=== PATIENT | female | born 1975 | race Two or more races ===

== ENCOUNTER 2016-07-05 10:36 | Emergency (ER) | payer OTHER ==
[~2016-07-05] VITALS: Ht 165.1 cm; Wt 72.6 kg
[2016-07-05] MEDS ORDERED: PRILOSEC OTC20 MG ORAL (10:50)
[2016-07-05] MEDS ORDERED: AMLODIPINE BESY10 MG ORAL (10:50)
[2016-07-05] MEDS ORDERED: ASPIR-LOW81 MG ORAL (10:50)
[2016-07-05] MEDS ORDERED: Ketorolac 30mg Inj IV ONE ×2 (11:00→17:15)
[2016-07-05] MEDS ORDERED: Tubing IV Cassette IV ONE (11:04)
[2016-07-05 11:09] LABS: ALANINE AMINOTRANSFERASE 10 U/L (3-33); ALBUMIN/GLOBULIN RATIO 1.2 (1.0-2.7); ANION GAP 20 (5-15); ASPARTATE AMINO TRANSFERASE 15 U/L (5-40); CALCIUM 9.2 mg/dL (8.6-10.2); CARBON DIOXIDE 20 mEQ/L (20-30); CHLORIDE 99 mEQ/L (98-107); CREATININE 0.9 mg/dL (0.5-0.9); GLOMERULAR FILTRATION RATE > 60 mL/min (>60); HEMOLYSIS 3; POTASSIUM 3.7 mEQ/L (3.4-4.9); SODIUM 139 mEQ/L (135-145); TOTAL PROTEIN 7.5 g/dL (6.6-8.7); TROPONIN I < 0.30 ng/mL (<=0.30)
[2016-07-05 11:14] LABS: EOSINOPHILS % (AUTO) 2.5 % (0.0-3.0); LYMPHOCYTES % (AUTO) 21.2 % (20.0-45.0); MEAN CORPUSCULAR HEMOGLOBIN 29.2 PG (27.0-31.0); MEAN CORPUSCULAR HGB CONC 33.4 G/DL (32.0-36.0); MEAN CORPUSCULAR VOLUME 87 FL (80-99); MEAN PLATELET VOLUME 5.5 FL (6.5-10.1); NEUTROPHILS % (AUTO) 69.4 % (45.0-75.0); PLATELET COUNT 436 K/UL (150-450); RED BLOOD COUNT 5.18 M/UL (4.20-5.40); RED CELL DISTRIBUTION WIDTH 11.8 % (11.6-14.8); WHITE BLOOD COUNT 7.9 K/UL (4.8-10.8)
[2016-07-05 11:19] LABS: CKMB < 1.5 ng/mL (< 3.8)
--- NOTE | 2016-07-05 11:39 | Diagnostic Imaging Report ---
Indication: Chest Pain Comparison: None A single view chest radiograph was obtained. Findings: Cardiomediastinal appearance is within normal limits for age. Pulmonary vascularity is appropriate. The diaphragmatic contour is smooth and costophrenic angles are sharp. No pleural effusions are identified. The bones are unremarkable. Impression: No acute findings
[2016-07-05 12:00] VITALS: BP 126/77
[2016-07-05 12:35] LABS: APPEARANCE,URINE CLEAR; KETONES,URINE NEGATIVE (NEGATIVE); LEUKOCYTE ESTERASE ,URINE NEGATIVE (NEGATIVE); NITRITE,URINE NEGATIVE (NEGATIVE); PH,URINE 7 (4.5-8.0); PROTEIN,URINE NEGATIVE (NEGATIVE); UROBILINOGEN,URINE NORMAL MG/DL (0.0-1.0)
[2016-07-05 12:53] LABS: BACTERIA,URINE OCCASIONAL /HPF; SQUAMOUS EPITHELIAL CELL,UR OCCASIONAL /LPF (NONE/OCC); WBC,URINE 0-2 /HPF (0 - 2)
--- NOTE | 2016-07-05 14:20 | Emergency Room Report ---
History of Present Illness General Chief Complaint: Chest Pain Source: Patient (CAROLINE ORTA M.D.) Present Illness HPI 40-year-old female presents ED complaining of chest pain. States chest pain started this morning. Pain is left-sided, 7/10, under the left breast, sharp, worse with moving and twisting. Worse with deep breaths. Denies shortness of breath. Patient denies drug use. No other aggravating or relieving factors. Denies any other associated symptoms (CAROLINE ORTA M.D.) Allergies: Coded Allergies: CIPROFLOXACIN (Verified Allergy, Intermediate, 07/05/16) Patient History Past Medical History: HTN Past Surgical History: none Pertinent Family History: none Social History: Denies: alcohol use, drug use, smoking Now: No Immunizations: UTD Reviewed Nursing Documentation: PMH: Agreed, PSxH: Agreed (CAROLINE ORTA M.D.) Past Medical History: see triage record Pertinent Family History: [place] (Rafael Roberts M.D.) Nursing Documentation-PMH Hx Cardiac Problems: No Hx Hypertension: Yes Hx Pacemaker: No Hx Asthma: No Hx COPD: No Hx Diabetes: No Hx Cancer: No Hx Gastrointestinal Problems: No Hx Dialysis: No History Of Psychiatric Problem: No Hx Neurological Problems: No Hx Cerebrovascular Accident: No Hx Seizures: No (CAROLINE ORTA M.D.) Review of Systems All Other Systems: negative except mentioned in HPI (CAROLINE ORTA M.D.) Physical Exam Vital Signs Date Time Temp Pulse Resp B/P Pulse Ox O2 Delivery O2 Flow Rate FiO2 07/05/16 10:32 98.1 100 16 126/98 98 Room Air Sp02 EP Interpretation: reviewed, normal General Appearance: no apparent distress, alert, GCS 15, non-toxic Head: normocephalic, atraumatic Eyes: bilateral eye PERRL, bilateral eye normal inspection ENT: hearing grossly normal, normal pharynx, no angioedema, normal voice Neck: full range of motion, supple/symm/no masses Respiratory: chest non-tender, lungs clear, normal breath sounds, speaking full sentences Cardiovascular #1: regular rate, rhythm, no edema Cardiovascular #2: 2+ carotid (R), 2+ carotid (L), 2+ radial (R), 2+ radial (L) , 2+ dorsalis pedis (R), 2+ dorsalis pedis (L) Gastrointestinal: normal bowel sounds, non tender, soft, non-distended, no guarding, no rebound Rectal: deferred Genitourinary: normal inspection, no CVA tenderness Musculoskeletal: back normal, gait/station normal, normal range of motion, non- tender Neurologic: alert, oriented x3, responsive, motor strength/tone normal, sensory intact, speech normal Psychiatric: judgement/insight normal, memory normal, mood/affect normal, no suicidal/homicidal ideation Reflexes: 3+ bicep (R), 3+ bicep (L), 3+ tricep (R), 3+ tricep (L), 3+ knee (R) , 3+ knee (L) Skin: normal color, no rash, warm/dry, well hydrated Lymphatic: no adenopathy (CAROLINE ORTA M.D.) Medical Decision Making Diagnostic Impression: Primary Impression: Chest pain Qualified Codes: R07.9 - Chest pain, unspecified Labs Test 07/05/16 10:30 07/05/16 12:17 White Blood Count 7.9 K/UL (4.8-10.8) Red Blood Count 5.18 M/UL (4.20-5.40) Hemoglobin 15.1 G/DL (12.0-16.0) Hematocrit 45.2 % (37.0-47.0) Mean Corpuscular Volume 87 FL (80-99) Mean Corpuscular Hemoglobin 29.2 PG (27.0-31.0) Mean Corpuscular Hemoglobin Concent 33.4 G/DL (32.0-36.0) Red Cell Distribution Width 11.8 % (11.6-14.8) Platelet Count 436 K/UL (150-450) Mean Platelet Volume 5.5 FL (6.5-10.1) Neutrophils (%) (Auto) 69.4 % (45.0-75.0) Lymphocytes (%) (Auto) 21.2 % (20.0-45.0) Monocytes (%) (Auto) 6.0 % (1.0-10.0) Eosinophils (%) (Auto) 2.5 % (0.0-3.0) Basophils (%) (Auto) 1.0 % (0.0-2.0) D-Dimer 741 ng/mL (<500) Sodium Level 139 mEQ/L (135-145) Potassium Level 3.7 mEQ/L (3.4-4.9) Chloride Level 99 mEQ/L (98-107) Carbon Dioxide Level 20 mEQ/L (20-30) Anion Gap 20 (5-15) Blood Urea Nitrogen 12 mg/dL (7-23) Creatinine 0.9 mg/dL (0.5-0.9) Estimat Glomerular Filtration Rate > 60 mL/min (>60) Glucose Level 119 mg/dL (74-106) Calcium Level 9.2 mg/dL (8.6-10.2) Total Bilirubin 0.3 mg/dL (0.0-1.2) Aspartate Amino Transf (AST/SGOT) 15 U/L (5-40) Alanine Aminotransferase (ALT/SGPT) 10 U/L (3-33) Alkaline Phosphatase 76 U/L (35-104) Total Creatine Kinase 75 U/L (26-140) Creatine Kinase MB < 1.5 ng/mL (< 3.8) Creatine Kinase MB Relative Index Troponin I < 0.30 ng/mL (<=0.30) Total Protein 7.5 g/dL (6.6-8.7) Albumin 4.1 g/dL (3.5-5.2) Globulin 3.4 g/dL Albumin/Globulin Ratio 1.2 (1.0-2.7) Urine Color Yellow Urine Appearance Clear Urine pH 7 (4.5-8.0) Urine Specific [place] 1.005 (1.005-1.035) Urine Protein Negative (NEGATIVE) Urine Glucose (UA) Negative (NEGATIVE) Urine Ketones Negative (NEGATIVE) Urine Occult Blood 2+ (NEGATIVE) Urine Nitrite Negative (NEGATIVE) Urine Bilirubin Negative (NEGATIVE) Urine Urobilinogen Normal MG/DL (0.0-1.0) Urine Leukocyte Esterase Negative (NEGATIVE) Urine RBC 2-4 /HPF (0 - 2) Urine WBC 0-2 /HPF (0 - 2) Urine Squamous Epithelial Cells Occasional /LPF Urine Bacteria Occasional /HPF (NONE) Urine HCG, Qualitative Negative Urine Opiates Screen Negative (NEGATIVE) Urine Barbiturates Screen Negative (NEGATIVE) Phencyclidine (PCP) Screen Negative (NEGATIVE) Urine Amphetamines Screen Negative (NEGATIVE) Urine Benzodiazepines Screen Negative (NEGATIVE) Urine Cocaine Screen Negative (NEGATIVE) Urine Marijuana (THC) Screen Negative (NEGATIVE) (CAROLINE ORTA M.D.) ER Course See the note from Dr. Orta. She denies DM to me. She reports viral prodrome several weeks. Has point tenderness in chest wall which is worsened with breathing. This was severe today while trying to drive to work. I gave dose of norco which she states "made me high" but still with pain. CTA negative for PE. Repeat dose of toradol. Patient stable for outpatient observation and treatment. (Rafael Roberts M.D.) EKG Diagnostic Results Rate: normal Rhythm: NSR ST Segments: no acute changes (CAROLINE ORTA M.D.) Rhythm Strip Diag. Results EP Interpretation: yes Rhythm: NSR, no PVC's, no ectopy (CAROLINE ORTA M.D.) Chest X-Ray Diagnostic Results EP Interpretation: Yes Findings: no consolidation, no effusion, no pneumothorax, no acute cardiopulmonary disease Number of Views: 1 (CAROLINE ORTA M.D.) CT/MRI/US Diagnostic Results CT/MRI/US Diagnostic Results : Imaging Test Ordered: CTA Impression no large clot. Liver nodularity. Atelectasis. Impression: Negative for evidence of acute pulmonary embolus or other acute thoracic vascular pathology Areas of atelectasis within the lingula. Otherwise clear lungs Incidental finding of subcentimeter low-attenuation lesions within segment 8 of the liver, too small to characterize, most likely benign simple cysts or bile hamartomas (Rafael Roberts M.D.) Last Vital Signs Date Time Temp Pulse Resp B/P Pulse Ox O2 Delivery O2 Flow Rate FiO2 07/05/16 12:00 74 18 126/77 100 Room Air 07/05/16 10:32 98.1 (CAROLINE ORTA M.D.) Last Vital Signs Date Time Temp Pulse Resp B/P Pulse Ox O2 Delivery O2 Flow Rate FiO2 07/05/16 17:29 98.0 84 14 127/80 100 Room Air Status: improved (Rafeal Roberts M.D.) Disposition: HOME, SELF-CARE Condition: Improved Scripts Naproxen* (NAPROSYN*) 500 Mg Tablet 500 MG ORAL TID, #20 TAB Prov: Rafael Roberts M.D. 07/05/16 Codeine/Promethazine Hcl* (PROMETHAZINE-CODEINE SYRUP*) 118 Ml Syrup 5 ML ORAL Q6H Y for For Cough, #90 ML 0 Refills Prov: Rafael Roberts M.D. 07/05/16 Referrals: [facility] (PCP) CAROLINE ORTA M.D. Jul 05, 2016 14:20 Rafael Roberts M.D. Jul 05, 2016 17:20
[2016-07-05 14:30] VITALS: BP 124/87
[2016-07-05] MEDS ORDERED: Norco 5mg/325mg tab ORAL ONE (15:15)
--- NOTE | 2016-07-05 15:31 | Diagnostic Imaging Report ---
ndication: Chest pain Technique: IV administration nonionic contrast. Spiral acquisitions obtained from the lung bases to the lung apices. Multiplanar and 3-D reconstructions were generated. Total dose length product 1037 and 433 mGycm. CTDIvol(s) 12, 37, 32, 23 mGy Comparison: None Findings: Pulmonary arterial opacification is adequate but not optimal. No definite intraluminal filling defects or other findings to suggest acute pulmonary embolus demonstrated. No evidence of thoracic aortic aneurysm or dissection. No evidence of right ventricular dilatation. Normal caliber pulmonary arteries. The lungs demonstrates areas of atelectasis within the lingula. There are otherwise clear, without infiltrates, effusions, congestion, masses, or nodules. The heart size is normal. No pericardial effusion. No mediastinal or hilar mass or adenopathy demonstrated. No axillary or chest wall mass or adenopathy. The bones are unremarkable. The included upper abdominal is remarkable for the presence level subcentimeter low-attenuation lesions within segment 8 of the liver which are too small to characterize. Impression: Negative for evidence of acute pulmonary embolus or other acute thoracic vascular pathology Areas of atelectasis within the lingula. Otherwise clear lungs Incidental finding of subcentimeter low-attenuation lesions within segment 8 of the liver, too small to characterize, most likely benign simple cysts or bile hamartomas The CT scanner at [facility] is accredited by the [employer] and the scans are performed using protocols designed to limit radiation exposure to as low as reasonably achievable to attain images of sufficient resolution adequate for diagnostic evaluation.
[2016-07-05 16:15] VITALS: BP 127/80
[2016-07-05] MEDS ORDERED: PROMETHAZINE-C118 M1 ORAL (17:12)
[2016-07-05] MEDS ORDERED: NAPROSYN500 M1 ORAL (17:12)
[2016-07-05 17:29] VITALS: BP 127/80
--- NOTE | 2016-07-07 16:12 | Cardiology Report ---
APPROVED REPORT EKG Measurement Heart [id number] Normal sinus rhythm with sinus arrhythmia Low voltage QRS Septal infarct, age undetermined Abnormal ECG
== END 2016-07-05 17:29 | disposition home or self-care (01) ==
LOC: EDBD 10:36 → EMR 11:20
DX: R07.9 Chest pain, unspecified (principal); I10 Essential (primary) hypertension; Z82.49 Family history of ischemic heart disease and other diseases of the circulatory system; Z88.1 Allergy status to other antibiotic agents
CPT/HCPCS: 36415; 71010; 71275; 80053; 80300; 81003; 81025; 82550; 82553; 84484; 85025; 85379; 93005; 96374; 99284; J1885; J2405; J7040; Q9967